=== PATIENT | male | born 1970 | race Caucasian/White ===

== ENCOUNTER 2017-12-07 16:54 | Emergency (ER) | payer OTHER ==
[2017-12-07 17:14] VITALS: BP 145/102
[2017-12-07] MEDS ORDERED: Amoxicillin/Clavulanate TAB* 875 MG PO ONE ×2 (17:37→17:39)
[2017-12-07] MEDS ORDERED: HYDROcodone/ACETAMIN 5-325 MG* 1 TAB PO ONE (17:38)
--- NOTE | 2017-12-07 17:58 | UC ---
Radha Cervantes Emily, scribed for Jay Simpson MD on 12/07/17 at 1734 . Ear Complaint HPI - HPI Summary HPI Summary: This patient is a 47 year old M presenting to urgent care with a chief complaint of R ear ache that began 12/05/2017. The patient rates the pain 7/10 in severity. Symptoms aggravated by nothing. Symptoms alleviated by nothing. Patient reports chills and diaphoresis. Patient denies dental pain, nasal discharge, sore throat, and ear drainage. Medications reviewed. Allergies reviewed - History of Current Complaint Chief Complaint: UCGeneralIllness Stated Complaint: RIGHT EAR ACHE Time Seen by Provider: 12/07/17 17:03 Hx Obtained From: Patient Onset/Duration: Sudden Onset, Lasting Days, Still Present Severity Initially: Moderate Severity Currently: Moderate Pain Intensity: 7 Pain Scale Used: 0-10 Numeric Aggravating Factors: Nothing Alleviating Factors: Nothing Associated Signs/Symptoms: Negative: Discharge, Hearing Loss, Trauma to Ear - Allergies/Home Medications Allergies/Adverse Reactions: Allergies Allergy/AdvReac Type Severity Reaction Status Date / Time No Known Allergies Allergy Verified 12/07/17 17:14 PMH/Surg Hx/FS Hx/Imm Hx Previously Healthy: Yes Cardiovascular History: Other Other Cardiovascular History: Negative HTN Respiratory History: Other Other Respiratory History: Negative asthma - Surgical History Surgical History: None - Family History Known Family History: Positive: Hypertension - Social History Occupation: Employed Full-time Lives: With Family Alcohol Use: Weekly Substance Use Type: None Smoking Status (MU): Never Smoked Tobacco Review of Systems Constitutional: Chills Skin: Other - Positive diaphoresis ENT: Ear Ache, Other - Negative sore throat, nasal discharge, and ear discharge All Other Systems Reviewed And Are Negative: Yes Physical Exam - Summary Physical Exam Summary: General: well-appearing, no pain distress Skin: warm, color reflects adequate perfusion, dry Head: normal Eyes: EOMI, JACKIE ENT: R TM has ear fluid behind the TM, TM morphology is slightly distorted. No ear canal drainage. No tenderness to palpation on the tragus or traction on the pinna Neck: supple, nontender Respiratory: CTA, breath sounds present Cardiovascular: RRR Abdomen: soft, nontender Bowel: present Musculoskeletal: normal, strength/ROM intact Neurological: sensory/motor intact, A&O x3 Psychological: affect/mood appropriate Triage Information Reviewed: Yes Vital Signs: Initial Vital Signs Temp 99.4 F 12/07/17 17:10 Pulse 100 12/07/17 17:10 Resp 16 12/07/17 17:10 BP 145/102 12/07/17 17:10 Pulse Ox 98 12/07/17 17:10 Vital Signs Reviewed: Yes Ear Complaint Course/Dx - Course Course Of Treatment: ON EXAM, THERE ARE BUBBLES BEHIND THE EAR DRUM. I DID NOT SEE A CHOLESTEATOMA ON MY EXAM. WILL TREAT AN EAR INFECTION, F/U PMD OR ENT IF NOT COMPLETELY IMPROVED. I DISCUSSED THE NEED FOR RECHECK IF NOT COMPLETELY IMPROVED WITH THE PATIENT, HE AGREED. - Differential Dx/Diagnosis Provider Diagnoses: RIGHT SEROUS OTITIS MEDIA. RIGHT EAR PAIN Discharge - Sign-Out/Discharge Documenting (check all that apply): Discharge/Admit/Transfer - Discharge Plan Condition: Stable Disposition: HOME Prescriptions: Amoxicillin/Clavulanate TAB* [Augmentin TAB 875*] 875 mg PO BID #18 tab HYDROcodone/ACETAMIN 5-325 MG* [[place] 5-325 TAB*] 1 tab PO Q4H PRN #15 tab MDD 6 PRN Reason: Pain Patient Education Materials: Earache (ED), Serous Otitis Media (ED) Referrals: [facility] [Provider Group] Nadine Batista MD [Primary Care Provider] - Additional Instructions: FOLLOW UP WITH YOUR PRIMARY CARE DOCTOR OR ENT IF NOT COMPLETELY IMPROVED. CONTINUE IBUPROFEN 600MG EVERY 6 HOURS NEEDED. TAKE THE NORCO NEEDED FOR PAIN. GET RECHECKED FOR ANY WORSENING OF YOUR CONDITION; PAIN, FEVER, YOU FEEL ILL OR QUESTIONS OR CONCERNS. - Billing Disposition and Condition Condition: STABLE Disposition: HOME The documentation as recorded by the Radha ashraf Emily accurately reflects the service I personally performed and the decisions made by me, Jay Simpson MD.
== END 2017-12-07 18:00 | disposition home or self-care (01) ==
LOC: UCEAST 16:54
DX: H65.91 Unspecified nonsuppurative otitis media, right ear (principal); H92.01 Otalgia, right ear
CPT/HCPCS: 99213; A9270-GY; G0463